=== PATIENT | female | born 1930 | race African-American/Black ===

== ENCOUNTER 2019-06-11 17:56 | Emergency (ER) | payer OTHER ==
[~2019-06-11] VITALS: Ht 167.6 cm; Wt 56.2 kg
[2019-06-11 19:30] VITALS: BP 175/74
== END 2019-06-11 19:30 | disposition home or self-care (01) ==
LOC: ER 17:56
DX: S00.03XA Contusion of scalp, initial encounter (principal); E03.9 Hypothyroidism, unspecified; W01.0XXA Fall on same level from slipping, tripping and stumbling without subsequent striking against object, initial encounter; Y93.89 Activity, other specified; Y92.89 Other specified places as the place of occurrence of the external cause; Y99.8 Other external cause status